=== PATIENT | female | born 1970 | race Caucasian/White ===

== ENCOUNTER 2016-06-04 15:40 | Emergency (ER) | payer BC ==
[~2016-06-04] VITALS: Wt 59.5 kg
[~2016-06-04 15:40] MED LIST: AMOX500T PO; ASPI-664; ASPI-676 PO; CEPH-443 PO; DICY20TA56 PO; GLIP5TAB13; GLIP5TAB13 PO; HYDR-3498 PO; HYDR-877 PO; HYDR12.53 PO; LORA-441 PO; METF-385; METF-480 PO; NO NEW MEDS; PREMARIN
[2016-06-04] MEDS ORDERED: ONDANSETRON (ODT) 4 MG TAB ODT STA (17:02)
[2016-06-04] MEDS ORDERED: HYDROmorphONE 1 MG/ML SYG IM STA (17:02)
--- NOTE | 2016-06-04 17:43 | RADRPT ---
PROCEDURE: CT Brain without contrast. CLINICAL INDICATION: Headache. TECHNIQUE: A CT of the brain without contrast was performed utilizing axial sections from the skul l base through the vertex. The patient was scanned without intravenous contrast enhancement. Sagitta l and coronal reformatted images were obtained using the data from the axial images. Total exam DLP is 630.20 mGy-cm. CTDIvol is 44.11 mGy. One or more of the following dose reduction techniques we re used: Automated exposure control, adjustment of the mA and/or kV according to patient size, use o f iterative reconstruction technique. COMPARISON: None available FINDINGS: There is normal velazquez-white matter differentiation. The ventricles and cisterns are normal. There is no intracranial hemorrhage or space-occupying lesion. There is no skull fracture or lytic lesion. IMPRESSION: 1. Normal noncontrast CT scan of the brain. 2. No intracranial hemorrhage. 3. No change from 03/11/2015. RPTAT: QQ .Adam Urban MD, MD Date Time Electronically viewed and signed by .Adam Urban MD, MD on 06/04/2016 17:43 .R/
[2016-06-04] MEDS ORDERED: ONDA8TAB14 PO (18:03)
[2016-06-04] MEDS ORDERED: HYDR-906 PO (18:03)
[2016-06-04] MEDS ORDERED: IBUP-1542 PO (18:03)
--- NOTE | 2016-06-04 18:07 | ERD ---
ER Documentation Chief Complaint Date/Time DATE: 06/04/16 TIME: 18:06 Chief Complaint HEADACHE, ONSET 3 DAYS, HX OF MIGRAINE HPI This 45-year-old female presents with a headache for last 3 days. Is left- sided. She has nausea and photophobia. 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 She denies any bowel or bladder incontinence, weakness, fevers, visual changes except photophobia. ROS All systems reviewed and are negative except as per history of present illness. Medications Home Meds Active Scripts Ibuprofen* (Motrin*) 600 Mg Tab, 600 MG PO Q6, #20 TAB Prov:SHANNON AGUDELO MD 06/04/16 Ondansetron (Ondansetron Odt) 8 Mg Tab.rapdis, 8 MG PO Q6H Y for NAUSEA AND/OR VOMITING, #8 TAB Prov:SHANNON AGUDELO MD 06/04/16 Hydrocodone/Acetaminophen (Kenna 5-325 Tablet) 1 Each Tablet, 1 TAB PO Q6H Y for PAIN, #14 TAB Prov:SHANNON AGUDELO MD 06/04/16 Lorazepam* (Ativan*) 0.5 Mg Tablet, 0.5 MG PO Q8 for MUSCLE SPASMS, #10 Prov:BARBARA SIMS PA-C 03/11/15 Hydrocodone Bit-Acetaminophen* (Kenna*) 5-325 Mg Tab, 1 TAB PO Q6 Y for PAIN, # 20 TAB Prov:BARBAAR SIMS PA-C 03/11/15 Reported Medications Hydrocodone Bit/Acetaminophen (Vicodin Es Tablet) 1 Tab Tablet, 1 TAB PO Q6 10/22/11 Amoxicillin Trihydrate (Amoxicillin) 500 Mg Tablet, 500 MG PO BID 10/22/11 Hydrochlorothiazide (Hydrochlorothiazide) 12.5 Mg Capsule, 12.5 MG PO DAILY 10/22/11 Aspirin (Efra Child) 81 Mg Chew, 81 MG PO DAILY 10/22/11 Glipizide* (Glipizide*) 5 Mg Tablet, 5 MG PO DAILY 10/22/11 Dicyclomine Hcl (Dicyclomine Hcl) 20 Mg Tablet, 20 MG PO BID 10/22/11 Metformin* (Glucophage*) 850 Mg Tablet, 850 MG PO 10/22/11 [Premarin] No Conflict Check 03/13/11 Cephalexin* (Keflex*) 500 Mg Capsule, 500 MG PO DAILY 03/13/11 [No New Meds] No Conflict Check 11/20/10 Metformin Hcl* (Metformin Hcl*) 850 Mg Tablet 09/25/10 Glipizide* (Glipizide*) 5 Mg Tablet 09/25/10 Aspirin* (Aspirin* EC) 81 Mg Tablet. 09/25/10 Allergies Allergies: Coded Allergies: No Known Allergies (Verified Allergy, Mild, 02/07/12) PMhx/Soc History of Surgery: Yes (TUMOR PITPUITARY GLAND, L EYE LENS, HYSTERECTOMY) Anesthesia Reaction: No Hx Neurological Disorder: No Hx Respiratory Disorders: No Hx Cardiac Disorders: No Hx Psychiatric Problems: No Hx Miscellaneous Medical Probl: Yes (DIABETES. HIGH CHOLESTEROL) Hx Alcohol Use: No Hx Substance Use: No Hx Tobacco Use: No Smoking Status: Never smoker Physical Exam Vitals Vital Signs Date Time Temp Pulse Resp B/P Pulse Ox O2 Delivery O2 Flow Rate FiO2 06/04/16 15:49 97.0 80 19 140/86 100 Physical Exam Const: [] Alert, uncomfortable due to pain. Head: Atraumatic Eyes: Normal Conjunctiva. Eyes are Saloni. ENT: Normal External Ears, Nose and Mouth. Neck: Full range of motion..~ No meningismus. Resp: Clear to auscultation bilaterally Cardio: Regular rate and rhythm, no murmurs Abd: Soft, non tender, non distended. Normal bowel sounds Skin: No petechiae or rashes Back: No midline or flank tenderness Ext: No cyanosis, or edema Neur: Awake and alert. Cranial nerves II through XII grossly intact. Patient has a normal gait and no appreciable focal neurologic deficits. Psych: Normal Mood and Affect Results 24 hrs Current Medications Medications (Trade) Dose Ordered Sig/Rubén Route PRN Reason Start Time Stop Time Status Last Admin Dose Admin Hydromorphone HCl (Dilaudid) 1 mg ONCE STAT IM 06/04/16 17:02 06/04/16 17:04 DC 06/04/16 17:18 Ondansetron HCl (Zofran Odt) 8 mg ONCE STAT ODT 06/04/16 17:02 06/04/16 17:04 DC 06/04/16 17:18 Procedures/MDM Given his to have surgery and worsening headache than usual. CT brain was performed which showed no acute abnormalities. Patient was given Dilaudid 1 mg IM and Zofran 8 mg of mouth. Patient appears to have a headache without evidence of meningitis, intracranial bleeding, fracture, mass-effect or neurologic deficit. She was treated with a short course of Kenna and Zofran at home instructions to follow-up with primary doctor this week. Patient should otherwise return for fevers, visual changes, weakness, bowel or bladder incontinence, new or worsening symptoms. Departure Diagnosis: Primary Impression: Headache Headache type: unspecified Headache chronicity pattern: acute headache Intractability: not intractable Qualified Code: R51 - Acute nonintractable headache, unspecified headache type Condition: Stable Patient Instructions: Headache, Unspecified Additional Instructions: CT normal today. Recheck for new or worsening symptoms or primary care doctor. SHANNON AGUDELO MD Jun 04, 2016 18:07
== END 2016-06-04 18:30 | disposition home or self-care (01) ==
LOC: FTE 15:40
DX: R51 Headache (principal); R11.0 Nausea; E11.9 Type 2 diabetes mellitus without complications; Z79.84 Long term (current) use of oral hypoglycemic drugs; Z79.82 Long term (current) use of aspirin
CPT/HCPCS: 70450; J1170; Z7610; 96372

== ENCOUNTER 2017-06-21 10:05 | Emergency (ER) | END 2017-06-21 12:48 | disposition home or self-care (01) ==

== ENCOUNTER 2017-08-30 20:52 | Emergency (ER) | END 2017-08-31 02:08 | disposition home or self-care (01) ==